=== PATIENT | male | born 1940 | race Caucasian/White ===

== ENCOUNTER 2018-07-16 22:31 | Emergency (ER) | payer OTHER ==
[~2018-07-16] VITALS: Ht 167.6 cm; Wt 99.8 kg
[~2018-07-16 22:31] MED LIST: ASPI81CH PO; Azopt10 ML BOTHEYES; Combigan Eye Dro5 ML BOTHEYES; FLONASE ALLERG9.9 ML NS; LATA.005SO BOTHEYES; LOSA25 PO; SIMV10 PO
[2018-07-17 00:33] LABS: BASOPHILS ABSOLUTE AUTO 0.02 K/mm3 (0.00-0.23); BASOPHILS PERCENT AUTO 0 % (0-2); EOSINOPHILS ABSOLUTE AUTO 0.36 K/mm3 (0.00-0.68); EOSINOPHILS PERCENT AUTO 6 % (0-6); Hematocrit 40.9 % (37.0-53.0); Hemoglobin 13.6 g/dL (13.5-17.5); IMMATURE GRAN ABSOLUTE AUTO 0.02 K/mm3 (0.00-0.10); IMMATURE GRAN PERCENT AUTO 0 % (0-1); LYMPHOCYTES ABSOLUTE AUTO 1.44 K/mm3 (0.84-5.20); LYMPHOCYTES PERCENT AUTO 23 % (21-46); MONOCYTES PERCENT AUTO 11 % (4-13); Mean Corpuscular HGB 32.9 pg (26.0-34.0); Mean Corpuscular HGB Conc 33.3 g/dL (31.5-36.5); Mean Corpuscular Volume 99 fL (80-100); Mean Platelet Volume 10.5 fL (9.1-12.4); NEUTROPHILS ABSOLUTE AUTO 3.84 K/mm3 (1.96-9.15); NEUTROPHILS PERCENT AUTO 60 % (41-73); Platelet Count 179 K/mm3 (150-400); RDW Coefficient Variation 13.2 % (11.7-14.2); RDW Standard Deviation 47.8 fL (35.1-46.3); Red Blood Cell Count 4.14 M/mm3 (4.30-5.90); White Blood Cell Count 6.38 K/mm3 (4.00-11.30)
[2018-07-17 01:08] LABS: Alanine Aminotransfer (ALT/SGP 28 U/L (12-78); Albumin, Blood 3.9 g/dL (3.4-5.0); Albumin/Globulin Ratio 1.2 (0.8-1.8); Alk Phos 49 U/L (50-136); Anion Gap 9 mmol/L (6-16); Aspartate Aminotrans (AST/SGOT 17 U/L (12-37); Bilirubin, Total 0.3 mg/dL (0.1-1.0); Blood Urea Nitrogen 28 mg/dL (8-24); Bun/Creatinine Ratio 24.1 (12.0-20.0); CO2, Blood 25 mmol/L (21-32); Calcium, Blood 8.4 mg/dL (8.5-10.1); Chloride, Blood 108 mmol/L (98-108); Creatinine, Blood 1.16 mg/dL (0.60-1.20); Globulin, Blood 3.2 g/dL (2.2-4.0); Glomerular Filtration Rate >60 (60-); Glucose, Blood 111 mg/dL (70-99); Potassium, Blood 3.7 mmol/L (3.5-5.5); Sodium, Blood 142 mmol/L (136-145); Total Protein, Blood 7.1 g/dL (6.4-8.2)
[2018-07-17 02:50] LABS: Calcium, Ionized (POC) 1.14 mmol/L (1.10-1.46); Chloride (POC) 105 mmol/L (98-108); Creatinine (POC) 1.1 mg/dL (0.8-1.3); Glucose (ISTAT POC) 112 mg/dL (70-99); Hemoglobin (POC) 13.3 g/dL (13.5-17.5); Potassium (POC) 3.5 mmol/L (3.5-5.5); Sodium (POC) 142 mmol/L (135-148); Total CO2 (POC) 24 mmol/L (21-32)
[2018-07-17] MEDS ORDERED: FLONASE ALLERG9.9 ML INH (02:52)
[2018-07-17] MEDS ORDERED: CLARITIN10 MG PO (02:52)
== END 2018-07-17 03:00 | disposition home or self-care (01) ==
LOC: ER 22:31
PROVIDERS: Emergency Medicine
DX: K62.5 Hemorrhage of anus and rectum (principal); I10 Essential (primary) hypertension; E78.00 Pure hypercholesterolemia, unspecified; Z87.891 Personal history of nicotine dependence; Z79.82 Long term (current) use of aspirin; Z79.899 Other long term (current) drug therapy
CPT/HCPCS: 36415; 80047; 80053; 85014; 85025

== ENCOUNTER 2018-07-23 10:47 | Day surgery (SDC) | payer OTHER ==
[~2018-07-23] VITALS: Ht 167.6 cm; Wt 96.8 kg
[~2018-07-23 10:47] MED LIST changes: +CLARITIN10 MG PO; +FLONASE ALLERG9.9 ML INH
== END 2018-07-23 13:01 | disposition home or self-care (01) ==
LOC: ORSCSDS 10:47
PROVIDERS: Surgery
PROC: 0DJD8ZZ Inspection of Lower Intestinal Tract, Via Natural or Artificial Opening Endoscopic (ICD-10-PCS; principal; 2018-07-23 12:00)
DX: K62.5 Hemorrhage of anus and rectum (principal); Z86.010 Personal history of colon polyps; K57.30 Diverticulosis of large intestine without perforation or abscess without bleeding; G47.33 Obstructive sleep apnea (adult) (pediatric); E66.9 Obesity, unspecified; I10 Essential (primary) hypertension; E78.5 Hyperlipidemia, unspecified; E11.9 Type 2 diabetes mellitus without complications; H40.9 Unspecified glaucoma; Z87.891 Personal history of nicotine dependence; Z68.34 Body mass index [BMI] 34.0-34.9, adult; Z79.82 Long term (current) use of aspirin; Z79.899 Other long term (current) drug therapy
CPT/HCPCS: J2001; J7120

== ENCOUNTER 2019-01-16 06:31 | Day surgery (SDC) | payer OTHER ==
[~2019-01-16] VITALS: Ht 167.6 cm; Wt 100.1 kg
[~2019-01-16 06:31] MED LIST changes: +ADULTS 50+ MUL1 EACH PO; -ASPI81CH PO; +Aspirin EC81 MG PO; +B-121000 MC2 PO; +FLONASE ALLERG9.9 ML; +Garlic Oil1000 MG PO; -LOSA25 PO; +LOSA50 PO; +Magnesium500 M1 PO; +NATURAL LUTEIN20 MG PO; +POTCHL20ER PO; +SV GLUCOSAMINE PO; +TAMS.4ER PO; +VITAMIN D32000 UNI1 PO; +VOLTAREN100 GM TOP; +Xalatan2.5 ML BOTHEYES; +ZYRTEC10 M1 PO; +Zocor10 MG PO
== END 2019-01-16 09:04 | disposition home or self-care (01) ==
LOC: ORSCSDS 06:31
PROVIDERS: Ophthalmology
PROC: 08RK3JZ Replacement of Left Lens with Synthetic Substitute, Percutaneous Approach (ICD-10-PCS; principal; 2019-01-16 08:00)
DX: H25.12 Age-related nuclear cataract, left eye (principal); H21.81 Floppy iris syndrome; I10 Essential (primary) hypertension; G47.33 Obstructive sleep apnea (adult) (pediatric); E66.9 Obesity, unspecified; Z68.35 Body mass index [BMI] 35.0-35.9, adult; Z79.899 Other long term (current) drug therapy; Z79.82 Long term (current) use of aspirin
CPT/HCPCS: 82947; J2001; J2250; J3010; J3301; J7120; V2632

== ENCOUNTER 2019-06-03 12:31 | Observation (INO) | payer OTHER ==
[~2019-06-03] VITALS: Ht 167.6 cm; Wt 102.3 kg
[~2019-06-03 12:31] MED LIST changes: +MAGNESIUM GLUCO27 MG PO; -Magnesium500 M1 PO
[2019-06-03 13:22] LABS: BASOPHILS ABSOLUTE AUTO 0.02 K/mm3 (0.00-0.23); BASOPHILS PERCENT AUTO 0 % (0-2); EOSINOPHILS ABSOLUTE AUTO 0.17 K/mm3 (0.00-0.68); EOSINOPHILS PERCENT AUTO 4 % (0-6); Hematocrit 44.7 % (37.0-53.0); Hemoglobin 14.8 g/dL (13.5-17.5); IMMATURE GRAN ABSOLUTE AUTO 0.01 K/mm3 (0.00-0.10); IMMATURE GRAN PERCENT AUTO 0 % (0-1); LYMPHOCYTES ABSOLUTE AUTO 1.19 K/mm3 (0.84-5.20); LYMPHOCYTES PERCENT AUTO 26 % (21-46); MONOCYTES ABSOLUTE AUTO 0.37 K/mm3 (0.16-1.47); MONOCYTES PERCENT AUTO 8 % (4-13); Mean Corpuscular HGB 32.2 pg (26.0-34.0); Mean Corpuscular HGB Conc 33.1 g/dL (31.5-36.5); Mean Corpuscular Volume 97 fL (80-100); Mean Platelet Volume 10.8 fL (9.1-12.4); NEUTROPHILS PERCENT AUTO 62 % (41-73); Platelet Count 186 K/mm3 (150-400); RDW Coefficient Variation 13.1 % (11.7-14.2); RDW Standard Deviation 47.2 fL (35.1-46.3); White Blood Cell Count 4.56 K/mm3 (4.00-11.30)
[2019-06-03 13:38] LABS: Alanine Aminotransfer (ALT/SGP 41 U/L (12-78); Albumin, Blood 3.9 g/dL (3.4-5.0); Albumin/Globulin Ratio 1.1 (0.8-1.8); Alk Phos 50 U/L (50-136); Anion Gap 8 mmol/L (6-16); Aspartate Aminotrans (AST/SGOT 23 U/L (12-37); Bilirubin, Total 0.6 mg/dL (0.1-1.0); Blood Urea Nitrogen 24 mg/dL (8-24); Bun/Creatinine Ratio 16.3 (12.0-20.0); CO2, Blood 25 mmol/L (21-32); Calcium, Blood 9.2 mg/dL (8.5-10.1); Chloride, Blood 108 mmol/L (98-108); Creatinine, Blood 1.47 mg/dL (0.60-1.20); Globulin, Blood 3.4 g/dL (2.2-4.0); Glomerular Filtration Rate 49 (60-); Glucose, Blood 132 mg/dL (70-99); Potassium, Blood 3.9 mmol/L (3.5-5.5); Sodium, Blood 141 mmol/L (136-145); Total Protein, Blood 7.3 g/dL (6.4-8.2); Troponin I <0.015 ng/mL (0.000-0.040)
[2019-06-03] MEDS ORDERED: ASPI81CH PO (16:38)
[2019-06-03] MEDS ORDERED: LOSA25 PO (16:40)
[2019-06-03] MEDS ORDERED: SIMV10 PO (16:41)
--- NOTE | 2019-06-03 17:26 | NUR ---
ECHOCARDIOGRAM COMPLETE
[2019-06-03] MEDS ORDERED: LUTEIN40 MG PO (18:38)
--- NOTE | 2019-06-03 19:35 | NUR ---
new er admit late afternoon. DX SYNCOPE, NEW AFIB. PT STATE EPISODE OF SYNCOPE TODAY WHILE EATING HIS LUNCH, STATE NO FALL, NO INJURY. STATE NO FURTHER EPISODES, NO DIZZINESS OR LIGHTHEADEDNESS @ THIS TIME. EKG IN ER SHOWED AFIB W HR 78 HOWEVER @ THIS TIME TELE MX REPORT NSR HR 68. CARDIOLOGY CALLED FOR CONSULT STATE WILL SEE PT IN AM. ECHO & CAROTID US DONE. ORTHOS DONE IN ER W/O SIGNIFICANT CHANGE. VSS @ THIS TIME. PT IS A/O X4, PLEASANT/COOPERATIVE, IND IN ROOM.
[2019-06-03 20:45] LABS: Troponin I <0.015 ng/mL (0.000-0.040)
[2019-06-04 04:59] LABS: BASOPHILS ABSOLUTE AUTO 0.03 K/mm3 (0.00-0.23); BASOPHILS PERCENT AUTO 1 % (0-2); EOSINOPHILS PERCENT AUTO 4 % (0-6); Hematocrit 39.4 % (37.0-53.0); IMMATURE GRAN ABSOLUTE AUTO 0.02 K/mm3 (0.00-0.10); IMMATURE GRAN PERCENT AUTO 0 % (0-1); LYMPHOCYTES ABSOLUTE AUTO 1.58 K/mm3 (0.84-5.20); LYMPHOCYTES PERCENT AUTO 27 % (21-46); MONOCYTES ABSOLUTE AUTO 0.65 K/mm3 (0.16-1.47); MONOCYTES PERCENT AUTO 11 % (4-13); Mean Corpuscular HGB 31.7 pg (26.0-34.0); Mean Corpuscular Volume 96 fL (80-100); Mean Platelet Volume 10.6 fL (9.1-12.4); NEUTROPHILS ABSOLUTE AUTO 3.28 K/mm3 (1.96-9.15); NEUTROPHILS PERCENT AUTO 57 % (41-73); Platelet Count 169 K/mm3 (150-400); RDW Coefficient Variation 13.5 % (11.7-14.2); White Blood Cell Count 5.76 K/mm3 (4.00-11.30)
[2019-06-04 05:22] LABS: Bun/Creatinine Ratio 16.9 (12.0-20.0); Calcium, Blood 8.4 mg/dL (8.5-10.1); Creatinine, Blood 1.42 mg/dL (0.60-1.20); Potassium, Blood 3.7 mmol/L (3.5-5.5)
--- NOTE | 2019-06-04 06:32 | NUR ---
SHIFT SUMMARY PT IS AN 79 Y/O MALE, ADMITTED FOR NEW ONSET AFIB AFTER A SYNCOPAL EPISODE AT HOME. PT IS A&O X 4, AND INDEPENDENT UP TO THE BATHROOM. NO COMPLAINTS OF PAIN, NAUSEA OR SOB. PT'S BP WAS SLIGHTLY ELEVATED IN THE 150-160S SYSTOLICALLY, BUT VITALS OTHER MEJIA STABLE. TELE SHOWED NSR IN THE 60S PER TELE RAIMANN MACHINE OPERATOR. NO ACUTE CHANGES IN PT CONDITION NOTED. WILL CONTINUE TO MONITOR AND TREAT PER EMAR UNTIL HAND OFF TO DAY SHIFT RN.
--- NOTE | 2019-06-04 10:12 | NUR ---
DR PERRY CARDIOLOGY IN TO SEE PT, STATE NEED FOR ZIO (RHYTHYM MX) PRIOR TO D/C. [facility]ART [facility] NOTIFIED, [employer] ATTENDANT NOTIFIED, WILL SCHEDULE NECESSARY APPTS. DR CLIFFORD NOTIFIED, IN TO SEE PT, STATE MAY GO HOME TODAY AFTER ZIO PLACED.
[2019-06-04] MEDS ORDERED: LOSA50 PO (10:55)
[2019-06-04] MEDS ORDERED: ELIQUIS2.5 MG PO (10:58)
[2019-06-04] MEDS ORDERED: METO25ER PO (10:58)
--- NOTE | 2019-06-04 12:07 | NUR ---
discharge PT SHOWERED, HRT CTR OVER TO PLACE ZIO PATCH HRT MX & GIVE INSTRUCT. DR CLIFFORD PROVIDE D/C HOME ORDERS. IV D/C INTACT. D/C INSTRUCT REVIEWED W PT & FAMILY W EMPHASIS ON NEW MEDS, SYNCOPE, AFIB & F/U APPTS. W/C ESCORT FROM HOSP PROVIDED. PT IS PLEASANT/APPRECIATIVE, ACCOMPANIED BY FAMILY.
== END 2019-06-04 11:47 | disposition home or self-care (01) ==
LOC: ER 12:31 → MEDS 12:32
PROVIDERS: Emergency Medicine; ADMIT Internal Medicine
DX: I48.0 Paroxysmal atrial fibrillation (principal); R55 Syncope and collapse; N17.9 Acute kidney failure, unspecified; I95.9 Hypotension, unspecified; I10 Essential (primary) hypertension; E78.5 Hyperlipidemia, unspecified; E66.9 Obesity, unspecified; G47.33 Obstructive sleep apnea (adult) (pediatric); Z79.51 Long term (current) use of inhaled steroids; Z79.82 Long term (current) use of aspirin; Z79.899 Other long term (current) drug therapy; Z88.8 Allergy status to other drugs, medicaments and biological substances; Z79.01 Long term (current) use of anticoagulants
CPT/HCPCS: 36415; 71046; 80048; 80053; 84443; 84484; 85025; 93005; 93010; 93306; 93880; 94660; 94762; 96360-59; 96372; 97161; 99285-25; G0378; J1650; J7030

== ENCOUNTER 2020-05-06 07:13 | Day surgery (SDC) | payer OTHER ==
[~2020-05-06] VITALS: Ht 167.6 cm; Wt 86.2 kg
[~2020-05-06 07:13] MED LIST changes: +ASPI81CH PO; +ELIQUIS2.5 MG PO; +LOSA25 PO; +LUTEIN40 MG PO; +METO25ER PO
== END 2020-05-06 09:20 | disposition home or self-care (01) ==
LOC: ORSCSDS 07:13
PROVIDERS: Ophthalmology
PROC: 08RJ3JZ Replacement of Right Lens with Synthetic Substitute, Percutaneous Approach (ICD-10-PCS; principal; 2020-05-06 08:30)
DX: H25.11 Age-related nuclear cataract, right eye (principal); H21.81 Floppy iris syndrome; G47.33 Obstructive sleep apnea (adult) (pediatric); I10 Essential (primary) hypertension; G62.9 Polyneuropathy, unspecified; Z79.899 Other long term (current) drug therapy; Z79.82 Long term (current) use of aspirin
CPT/HCPCS: J2001; J2250; J3010; J3301; V2632